=== PATIENT | female | born 1955 | race Caucasian/White ===

== ENCOUNTER 2017-01-13 16:26 | Inpatient (IN) | payer MEDICAID ==
[~2017-01-13] VITALS: Ht 165.1 cm; Wt 79.7 kg
[~2017-01-13 16:26] MED LIST: ASPI-496 PO; ASPI-515 PO; ATOR10TA9 PO; ATOR80TA75 PO; CIPR250T27 PO; GABA300C10 PO; GLYB5TAB3 PO; INSU100I28 SQ-INSULIN; INSU100V5 SQ-INSULIN; METF850T2 PO; OMEP10CA4 PO; SERT50TA5 PO; SPIR100T2 PO; VITA400C43 PO; [UNRECOGNIZED DRUG - REMARK]
[2017-01-13] MEDS ORDERED: MORPHINE SULFATE 4 MG/ML, 1ML IVPush PRN (17:00)
[2017-01-13 17:53] LABS: ASPARTATE AMINO TRANSFERASE 17 U/L (15-37); BLOOD UREA NITROGEN 31 mg/dL (7-18)
[2017-01-13] MEDS ORDERED: MORPHINE SULFATE 4 MG/ML, 1ML ONE (18:53)
[2017-01-13] MEDS ORDERED: PHARMACOKINETIC CONSULTATION MC ONE ×2 (19:00→22:00)
[2017-01-13] MEDS ORDERED: VANCOMYCIN 1,500 MG in SODIUM CHLORIDE 0.9% 250 ML IV ONE (19:00)
[2017-01-13] MEDS ORDERED: VANCOMYCIN PER PHARMACY MC PRN ×2 (19:00→20:00)
[2017-01-13] MEDS ORDERED: ACETAMINOPHEN 325 MG TABLET PO PRN (20:00)
[2017-01-13] MEDS ORDERED: morphine SULFATE 10 MG/ML, 1ML IVPush PRN (20:00)
[2017-01-13] MEDS ORDERED: ONDANSETRON 2MG/ML, 2ML IVPush PRN (20:00)
[2017-01-13] MEDS ORDERED: BISACODYL 10 MG SUPP PR PRN (20:00)
[2017-01-13] MEDS ORDERED: INSULIN DETEMIR 100 UNITS/ML, PEN SQ-INSULIN SCH (20:00)
[2017-01-13] MEDS ORDERED: POLYETHYLENE GLYCOL 17 GM PACKET PO PRN (20:00)
[2017-01-13] MEDS ORDERED: PIPERACILLIN/TAZO 3.375 GM in SODIUM CHLORIDE 0.9% 50 ML IV SCH (20:00)
[2017-01-13] MEDS ORDERED: PHARMACOKINETIC MONITORING MC PRN (22:00)
[2017-01-13] MEDS: INSULIN REGULAR 100 UNITS/ML, 3ML VIAL SQ-INSULIN SCH (22:45)
[2017-01-13] MEDS: GABAPENTIN 300 MG CAPSULE PO SCH (22:45)
[2017-01-13] MEDS: PIPERACILLIN/TAZO/PMX 3.375GM 50 ML IV SCH (22:45)
[2017-01-13] MEDS: SODIUM CHLORIDE 0.9% 1,000 ML IV SCH (22:45)
[2017-01-13] MEDS: ATORVASTATIN 10 MG TABLET PO SCH (22:45)
[2017-01-13] MEDS: HEPARIN 5,000 UNITS/ML, 1ML SQ SCH (22:46)
[2017-01-13] MEDS: HYDROcodone/APAP 5/325 TABLET PO PRN (23:43)
[2017-01-14 02:51] VITALS: BP 99/53
[2017-01-14] MEDS: PIPERACILLIN/TAZO/PMX 3.375GM 50 ML IV SCH ×4 (04:51→21:46)
[2017-01-14 05:46] LABS: BLOOD UREA NITROGEN 29 mg/dL (7-18)
[2017-01-14 05:50] LABS: ASPARTATE AMINO TRANSFERASE 12 U/L (15-37)
[2017-01-14] MEDS: INSULIN REGULAR 100 UNITS/ML, 3ML VIAL SQ-INSULIN SCH ×3 (06:20→16:00)
[2017-01-14] MEDS: HEPARIN 5,000 UNITS/ML, 1ML SQ SCH ×2 (06:20→14:00)
[2017-01-14 06:43] VITALS: BP 86/55
[2017-01-14] MEDS: INSULIN DETEMIR 100 UNITS/ML, PEN SQ-INSULIN SCH (08:00)
[2017-01-14] MEDS ORDERED: SODIUM CHLORIDE 0.9% 1,000ML IVBOLUS ONE (08:00)
[2017-01-14] MEDS: SENNA/DOCUSATE TABLET PO SCH (08:19)
[2017-01-14] MEDS: GABAPENTIN 300 MG CAPSULE PO SCH ×3 (08:20→21:41)
[2017-01-14] MEDS: SERTRALINE 50MG TABLET PO SCH (08:21)
[2017-01-14] MEDS ORDERED: SPIRONOLACTONE 100 MG TABLET PO SCH (09:00)
[2017-01-14] MEDS ORDERED: ASPIRIN 81 MG TABLET EC PO SCH (09:00)
[2017-01-14] MEDS ORDERED: VITAMIN E 400 UNITS CAPSULE PO SCH (09:00)
[2017-01-14] MEDS ORDERED: GADOBUTROL 7.5 MMOL/7.5 ML PFS ONE (11:10)
[2017-01-14] MEDS: SODIUM CHLORIDE 0.9% 1,000 ML IV SCH ×2 (12:00→21:43)
[2017-01-14 13:03] VITALS: BP 113/69
[2017-01-14] MEDS: VANCOMYCIN 1,500 MG in SODIUM CHLORIDE 0.9% 250 ML IV SCH (19:28)
[2017-01-14 19:31] VITALS: BP 126/60
[2017-01-14] MEDS: ATORVASTATIN 10 MG TABLET PO SCH (21:41)
[2017-01-14] MEDS: INSULIN ASPART 100 UNITS/ML, PEN SQ-INSULIN SCH (22:00)
[2017-01-15 03:15] VITALS: BP 118/70
[2017-01-15] MEDS: PIPERACILLIN/TAZO/PMX 3.375GM 50 ML IV SCH ×4 (03:30→21:34)
[2017-01-15] MEDS: INSULIN ASPART 100 UNITS/ML, PEN SQ-INSULIN SCH ×4 (06:13→21:34)
[2017-01-15] MEDS: SODIUM CHLORIDE 0.9% 1,000 ML IV SCH ×2 (06:14→17:44)
[2017-01-15 06:46] VITALS: BP 108/68
[2017-01-15] MEDS: SENNA/DOCUSATE TABLET PO SCH (10:13)
[2017-01-15] MEDS: GABAPENTIN 300 MG CAPSULE PO SCH ×3 (10:13→21:31)
[2017-01-15] MEDS: SERTRALINE 50MG TABLET PO SCH (10:13)
[2017-01-15] MEDS: INSULIN DETEMIR 100 UNITS/ML, PEN SQ-INSULIN SCH (10:13)
[2017-01-15] MEDS: SPIRONOLACTONE 100 MG TABLET PO SCH (10:13)
[2017-01-15 12:28] VITALS: BP 135/76
[2017-01-15 18:28] VITALS: BP 147/71
[2017-01-15] MEDS: VANCOMYCIN 1,500 MG in SODIUM CHLORIDE 0.9% 250 ML IV SCH (19:26)
[2017-01-15] MEDS: ATORVASTATIN 10 MG TABLET PO SCH (21:31)
[2017-01-16 00:47] VITALS: BP 125/77
[2017-01-16] MEDS: PIPERACILLIN/TAZO/PMX 3.375GM 50 ML IV SCH ×4 (04:28→22:13)
[2017-01-16] MEDS: SODIUM CHLORIDE 0.9% 1,000 ML IV SCH ×2 (04:28→13:40)
[2017-01-16 05:27] LABS: BLOOD UREA NITROGEN 16 mg/dL (7-18)
[2017-01-16] MEDS: INSULIN ASPART 100 UNITS/ML, PEN SQ-INSULIN SCH ×4 (06:30→20:30)
[2017-01-16 06:46] VITALS: BP 118/76
[2017-01-16] MEDS: SENNA/DOCUSATE TABLET PO SCH (09:00)
[2017-01-16] MEDS: GABAPENTIN 300 MG CAPSULE PO SCH ×3 (09:33→20:30)
[2017-01-16] MEDS: SPIRONOLACTONE 100 MG TABLET PO SCH (09:33)
[2017-01-16] MEDS: HYDROcodone/APAP 5/325 TABLET PO PRN (09:33)
[2017-01-16] MEDS: SERTRALINE 50MG TABLET PO SCH (09:33)
[2017-01-16] MEDS: INSULIN DETEMIR 100 UNITS/ML, PEN SQ-INSULIN SCH (09:34)
[2017-01-16 12:40] VITALS: BP 128/55
[2017-01-16] MEDS: VANCOMYCIN 1,500 MG in SODIUM CHLORIDE 0.9% 250 ML IV SCH (19:33)
[2017-01-16 19:42] VITALS: BP 145/75
[2017-01-16] MEDS: ATORVASTATIN 10 MG TABLET PO SCH (20:30)
[2017-01-17 01:58] VITALS: BP 153/78
[2017-01-17] MEDS: SODIUM CHLORIDE 0.9% 1,000 ML IV SCH ×3 (03:05→22:58)
[2017-01-17] MEDS: PIPERACILLIN/TAZO/PMX 3.375GM 50 ML IV SCH ×2 (03:52→10:42)
[2017-01-17] MEDS: INSULIN ASPART 100 UNITS/ML, PEN SQ-INSULIN SCH ×4 (06:26→20:55)
[2017-01-17 07:43] VITALS: BP 163/83
[2017-01-17] MEDS: SPIRONOLACTONE 100 MG TABLET PO SCH (08:09)
[2017-01-17] MEDS: SERTRALINE 50MG TABLET PO SCH (08:09)
[2017-01-17] MEDS: INSULIN DETEMIR 100 UNITS/ML, PEN SQ-INSULIN SCH ×2 (08:09→20:56)
[2017-01-17] MEDS: GABAPENTIN 300 MG CAPSULE PO SCH ×3 (08:09→20:50)
[2017-01-17] MEDS: SENNA/DOCUSATE TABLET PO SCH (08:09)
[2017-01-17] MEDS: HYDROcodone/APAP 5/325 TABLET PO PRN (10:45)
[2017-01-17 14:40] VITALS: BP 153/81
[2017-01-17] MEDS: AMLODIPINE 2.5 MG TABLET PO SCH (16:45)
[2017-01-17] MEDS: AMPICILLIN/SULBACTAM 3 GM in SODIUM CHLORIDE 0.9% 100 ML IV SCH ×2 (16:45→22:04)
[2017-01-17 18:30] VITALS: BP 123/69
[2017-01-17] MEDS: ATORVASTATIN 10 MG TABLET PO SCH (20:50)
[2017-01-18 01:11] VITALS: BP 139/78
[2017-01-18] MEDS: AMPICILLIN/SULBACTAM 3 GM in SODIUM CHLORIDE 0.9% 100 ML IV SCH ×4 (03:59→22:31)
[2017-01-18 05:49] LABS: BLOOD UREA NITROGEN 14 mg/dL (7-18)
[2017-01-18] MEDS: INSULIN ASPART 100 UNITS/ML, PEN SQ-INSULIN SCH ×4 (06:27→20:59)
[2017-01-18 06:31] VITALS: BP 124/64
[2017-01-18] MEDS: INSULIN DETEMIR 100 UNITS/ML, PEN SQ-INSULIN SCH ×2 (10:14→20:59)
[2017-01-18] MEDS: AMLODIPINE 2.5 MG TABLET PO SCH (10:14)
[2017-01-18] MEDS: GABAPENTIN 300 MG CAPSULE PO SCH ×3 (10:14→20:56)
[2017-01-18] MEDS: SENNA/DOCUSATE TABLET PO SCH (10:14)
[2017-01-18] MEDS: SERTRALINE 50MG TABLET PO SCH (10:14)
[2017-01-18 14:03] VITALS: BP 166/82
[2017-01-18 18:46] VITALS: BP 160/79
[2017-01-18] MEDS ORDERED: SODIUM CHLORIDE 0.9% 1,000 ML IV SCH (19:46)
[2017-01-18] MEDS: ATORVASTATIN 10 MG TABLET PO SCH (20:56)
[2017-01-19 02:37] VITALS: BP 150/76
[2017-01-19] MEDS: AMPICILLIN/SULBACTAM 3 GM in SODIUM CHLORIDE 0.9% 100 ML IV SCH ×4 (03:47→22:49)
[2017-01-19 05:22] LABS: BLOOD UREA NITROGEN 19 mg/dL (7-18)
[2017-01-19 05:26] LABS: ASPARTATE AMINO TRANSFERASE 26 U/L (15-37)
[2017-01-19] MEDS: INSULIN ASPART 100 UNITS/ML, PEN SQ-INSULIN SCH ×4 (06:11→21:34)
[2017-01-19 07:00] VITALS: BP 143/73
[2017-01-19] MEDS: AMLODIPINE 2.5 MG TABLET PO SCH (09:12)
[2017-01-19] MEDS: SENNA/DOCUSATE TABLET PO SCH (09:12)
[2017-01-19] MEDS: GABAPENTIN 300 MG CAPSULE PO SCH ×3 (09:12→21:32)
[2017-01-19] MEDS: SERTRALINE 50MG TABLET PO SCH (09:12)
[2017-01-19] MEDS: INSULIN DETEMIR 100 UNITS/ML, PEN SQ-INSULIN SCH ×2 (09:13→21:32)
[2017-01-19 14:00] VITALS: BP 153/78
[2017-01-19 18:33] VITALS: BP 135/70
[2017-01-19] MEDS: ATORVASTATIN 10 MG TABLET PO SCH (21:32)
[2017-01-20 01:13] VITALS: BP 152/76
[2017-01-20] MEDS: AMPICILLIN/SULBACTAM 3 GM in SODIUM CHLORIDE 0.9% 100 ML IV SCH ×4 (04:14→22:23)
[2017-01-20 05:59] LABS: BLOOD UREA NITROGEN 17 mg/dL (7-18)
[2017-01-20] MEDS: INSULIN ASPART 100 UNITS/ML, PEN SQ-INSULIN SCH ×4 (07:00→20:35)
[2017-01-20 07:32] VITALS: BP 158/80
[2017-01-20] MEDS: INSULIN DETEMIR 100 UNITS/ML, PEN SQ-INSULIN SCH ×2 (08:30→20:34)
[2017-01-20] MEDS: AMLODIPINE 2.5 MG TABLET PO SCH (11:29)
[2017-01-20] MEDS: SERTRALINE 50MG TABLET PO SCH (11:29)
[2017-01-20] MEDS: GABAPENTIN 300 MG CAPSULE PO SCH ×3 (11:29→20:22)
[2017-01-20] MEDS: SENNA/DOCUSATE TABLET PO SCH (11:30)
[2017-01-20 11:50] VITALS: BP 161/83
[2017-01-20] MEDS ORDERED: INSULIN DETEMIR 100 UNITS/ML, PEN SQ-INSULIN ONE (12:30)
[2017-01-20 19:28] VITALS: BP 152/90
[2017-01-20] MEDS: ATORVASTATIN 10 MG TABLET PO SCH (20:22)
[2017-01-21 02:52] VITALS: BP 123/70
[2017-01-21] MEDS: AMPICILLIN/SULBACTAM 3 GM in SODIUM CHLORIDE 0.9% 100 ML IV SCH ×2 (03:44→10:00)
[2017-01-21] MEDS: INSULIN ASPART 100 UNITS/ML, PEN SQ-INSULIN SCH ×2 (06:40→12:54)
[2017-01-21 07:00] VITALS: BP 129/61
[2017-01-21] MEDS: SENNA/DOCUSATE TABLET PO SCH ×2 (08:43→08:46)
[2017-01-21] MEDS: AMLODIPINE 2.5 MG TABLET PO SCH (08:43)
[2017-01-21] MEDS: SERTRALINE 50MG TABLET PO SCH (08:43)
[2017-01-21] MEDS: GABAPENTIN 300 MG CAPSULE PO SCH (08:43)
[2017-01-21] MEDS: INSULIN DETEMIR 100 UNITS/ML, PEN SQ-INSULIN SCH (08:49)
[2017-01-21] MEDS: HYDROcodone/APAP 5/325 TABLET PO PRN (09:05)
[2017-01-21] MEDS ORDERED: AMOX1TAB64 PO (09:21)
[2017-01-21] MEDS ORDERED: AMLO2.5T PO (09:21)
[2017-01-21] MEDS ORDERED: INSU100I28 SQ-INSULIN (09:21)
== END 2017-01-21 13:15 | disposition home or self-care (01) | DRG 871 ==
LOC: ED 19:33 → EDIP 19:46 → 4NOR 21:00
PROVIDERS: ADMIT Internal Medicine; ATTEND Internal Medicine
DX: A41.9 Sepsis, unspecified organism (principal); E43 Unspecified severe protein-calorie malnutrition; L03.115 Cellulitis of right lower limb; L02.611 Cutaneous abscess of right foot; E11.21 Type 2 diabetes mellitus with diabetic nephropathy; E11.22 Type 2 diabetes mellitus with diabetic chronic kidney disease; E11.610 Type 2 diabetes mellitus with diabetic neuropathic arthropathy; E78.5 Hyperlipidemia, unspecified; F32.9 Major depressive disorder, single episode, unspecified; I12.9 Hypertensive chronic kidney disease with stage 1 through stage 4 chronic kidney disease, or unspecified chronic kidney disease; N18.1 Chronic kidney disease, stage 1; D64.9 Anemia, unspecified; E11.40 Type 2 diabetes mellitus with diabetic neuropathy, unspecified; E11.65 Type 2 diabetes mellitus with hyperglycemia; K21.9 Gastro-esophageal reflux disease without esophagitis; Z89.411 Acquired absence of right great toe; Z79.4 Long term (current) use of insulin; Z68.29 Body mass index [BMI] 29.0-29.9, adult; Z71.3 Dietary counseling and surveillance
CPT/HCPCS: 36415; 80048; 80053; 82040; 82962; 83036; 83605; 83735; 84145; 85025; 85651; 86140; 87040; 87070; 87147; 87181; 87205; 87324; 96365; 96375; A9585; J0295; J1644; J1815; J2543; J3370; J7030; J7050

== ENCOUNTER 2017-06-25 17:18 | Emergency (ER) | payer MEDICAID ==
[~2017-06-25] VITALS: Ht 162.6 cm; Wt 66.0 kg
[~2017-06-25 17:18] MED LIST changes: +AMLO2.5T PO; +AMOX1TAB64 PO; +ATOR-2 PO; -ATOR80TA75 PO
[2017-06-25] MEDS ORDERED: DIPH,PERTUSS(ACELL),TET VAC/PF 0.5 ML IM-VACC ONE ×2 (18:00→18:49)
[2017-06-25] MEDS ORDERED: SODIUM CHLORIDE FLUSH 10ML SYR IVF ONE (18:00)
[2017-06-25] MEDS ORDERED: LIDOCAINE 1%, 20ML ONE (18:16)
[2017-06-25 18:54] LABS: HEMATOCRIT 41.4 % (34.6-47.8); HEMOGLOBIN 13.9 g/dL (11.7-16.4); WHITE BLOOD COUNT 6.3 x10^3/uL (3.4-10)
[2017-06-25 18:58] LABS: ASPARTATE AMINO TRANSFERASE 17 U/L (15-37); BLOOD UREA NITROGEN 24 mg/dL (7-18)
[2017-06-25] MEDS ORDERED: SODIUM CHLORIDE 0.9% 1,000ML IVBOLUS ONE (19:00)
[2017-06-25 19:08] LABS: IS PT STATUS REG ER OR PRE ER? YES
[2017-06-25] MEDS ORDERED: INSULIN REGULAR 100 UNITS/ML, 3ML VIAL SQ-INSULIN ONE (20:00)
[2017-06-25] MEDS ORDERED: INSULIN REGULAR 100 UNITS/ML, 3ML VIAL ONE (20:11)
[2017-06-25] MEDS ORDERED: CEFAZOLIN PMX 1GM/50ML 50 ML ONE (20:41)
[2017-06-25] MEDS ORDERED: CEFAZOLIN PMX 1GM/50ML 50 ML IVPB ONE (21:00)
[2017-06-25 21:34] VITALS: BP 154/65
== END 2017-06-25 22:20 | disposition home or self-care (01) ==
LOC: ED 22:10
DX: S61.411A Laceration without foreign body of right hand, initial encounter (principal); R55 Syncope and collapse; I10 Essential (primary) hypertension; K21.9 Gastro-esophageal reflux disease without esophagitis; W18.30XA Fall on same level, unspecified, initial encounter; Y93.89 Activity, other specified; Y92.89 Other specified places as the place of occurrence of the external cause; Y99.8 Other external cause status
CPT/HCPCS: 12001; 13131; 36415; 70450; 72125; 73130; 80053; 82962; 84484; 85025; 90471; 90715; 93005; 96361; 96365; 96372; 99285; J0690; J7030

== ENCOUNTER 2018-08-16 12:45 | Emergency (ER) | payer MEDICAID, MEDICARE ==
[~2018-08-16] VITALS: Ht 160 cm; Wt 90.0 kg
[~2018-08-16 12:45] MED LIST changes: -AMLO2.5T PO; +AMLO2.5T5 PO; +METF850T10 PO; -METF850T2 PO; +SERT50TA28 PO; -SERT50TA5 PO; -SPIR100T2 PO; +SPIR100T4 PO
[2018-08-16 13:12] VITALS: BP 148/69
[2018-08-16 14:13] LABS: BASOPHILS # (AUTO) 0.03 x10^3/uL (0-0.1); BASOPHILS % (AUTO) 0 % (0-1); EOSINOPHILS # (AUTO) 0.15 x10^3/uL (0-0.4); EOSINOPHILS % (AUTO) 2 % (1-7); LYMPHOCYTES # (AUTO) 2.09 x10^3/uL (1-3.4); LYMPHOCYTES % (AUTO) 24 % (22-44); MD NO; MEAN CORPUSCULAR HEMOGLOBIN 29.3 pg (27.0-34.8); MEAN CORPUSCULAR HGB CONC 33.4 g/dL (32.4-35.8); MEAN CORPUSCULAR VOLUME 87.7 fL (80-100); MEAN PLATELET VOLUME 9.5 fL (7.4-10.4); MONOCYTES # (AUTO) 0.68 x10^3/uL (0.2-0.8); MONOCYTES % (AUTO) 8 % (2-9); NEUTROPHILS # (AUTO) 5.84 x10^3/uL (1.8-6.8); NEUTROPHILS % (AUTO) 66 % (42-75); PLATELET COUNT 323 x10^3/uL (130-400); RED BLOOD COUNT 4.02 x10^6/uL (3.82-5.3); RED CELL DISTRIBUTION WIDTH 13.4 % (9.6-15.2)
[2018-08-16 14:21] LABS: ALBUMIN 2.8 g/dL (3.4-5.0); ANION GAP 6 mmol/L (5-15); CALCIUM 9.2 mg/dL (8.5-10.1); CHLORIDE 106 mmol/L (98-107); CREATININE 1.35 mg/dL (0.55-1.02)
== END 2018-08-16 15:13 | disposition home or self-care (01) ==
LOC: ED 13:56
DX: S91.301A Unspecified open wound, right foot, initial encounter (principal); E11.65 Type 2 diabetes mellitus with hyperglycemia; I10 Essential (primary) hypertension; K21.9 Gastro-esophageal reflux disease without esophagitis; X50.1XXA Overexertion from prolonged static or awkward postures, initial encounter; Y93.89 Activity, other specified; Y92.89 Other specified places as the place of occurrence of the external cause; Y99.8 Other external cause status
CPT/HCPCS: 36415; 80048; 82040; 85025; 99284